=== PATIENT | female | born 1935 | race Caucasian/White ===

== ENCOUNTER 2016-11-24 16:02 | Inpatient (IN) | payer OTHER ==
[2016-11-24] MEDS ORDERED: ZOFRAN IV PRN (17:41)
[2016-11-24] MEDS ORDERED: CALMOSEPTINE OINTMENT TOP SCH (17:41)
[2016-11-24] MEDS ORDERED: NS 500 ML IV ONE (17:41)
[2016-11-24 18:24] LABS: MANUAL DIFF NEEDED? NO
[2016-11-24 18:26] LABS: BASO% 0.3 % (0.0-0.8); EOS# 0.02 X1000 (0.0-0.7); EOS% 0.3 % (0.0-10.0); HEMATOCRIT 44.7 % (37.0-47.0); HEMOGLOBIN 15.5 g/dL (12.0-16.0); LYMPH# 2.02 X1000 (1.2-3.4); LYMPH% 26.4 % (20.5-51.1); MCH 33.7 PG (27-31); MCHC 34.7 g/dL (33-37); MCV 97.2 FL (81-99); MONO# 0.32 X1000 (0.11-0.59); MONO% 4.2 % (1.7-9.3); MPV 9.3 FL (7.4-10.4); NEUT% 68.8 % (42.2-75.2); PLT 320 X1000 (130-400)
[2016-11-24 18:55] LABS: CALCIUM 10.2 mg/dL (8.8-10.2); POTASSIUM 4.2 mmol/L (3.5-5.1); TOTAL BILIRUBIN 0.38 mg/dL (0.20-1.00); TOTAL PROTEIN 6.9 g/dL (6.3-8.3)
[2016-11-24] MEDS: NICODERM PATCH TD SCH (19:07)
[2016-11-24] MEDS: NS 1,000 ML IV SCH (19:41)
[2016-11-24 20:01] LABS: URINE SOURCE CLEAN CATCH
[2016-11-24 20:05] LABS: BILIRUBIN URINE NEGATIVE (NEGATIVE); BLOOD URINE MODERATE (NEGATIVE); COLOR YELLOW; GLUCOSE URINE NEGATIVE (NEGATIVE); LEUKOCYTES URINE LARGE (NEGATIVE); NITRITE URINE POSITIVE (NEGATIVE); PH URINE 6.5; PROTEIN URINE 70 mg/dL (NEGATIVE); SP GRAVITY URINE 1.026; TURBIDITY URINE TURBID (CLEAR); UROBILINOGEN URINE NORMAL (NORMAL)
[2016-11-24 20:06] LABS: URINE MICRO REVIEW NEEDED? YES
[2016-11-24 20:18] LABS: UR EPITHELIAL CELLS <10 /HPF (<10); URINE BACTERIA 4+ /HPF; URINE CULTURE NEEDED? YES; URINE RBC TNTC /HPF (<10); URINE WBC TNTC /HPF (<10)
[2016-11-24 20:23] LABS: URINE CASTS NONE SEEN; URINE CRYSTALS NONE SEEN; URINE SMALL ROUND CELLS NONE SEEN
[2016-11-24] MEDS ORDERED: LOVENOX SUBQ SCH (21:00)
[2016-11-24] MEDS ORDERED: ALBUTEROL NEB INH SCH (21:00)
[2016-11-25] MEDS: NS 1,000 ML IV SCH (04:31)
[2016-11-25] MEDS ORDERED: SYNTHROID PO SCH (07:00)
--- NOTE | 2016-11-25 08:04 | Diag Imaging Result Document ---
PROCEDURE NAME: ABDOMEN FLAT/UPRIGHT - 11/24/2016 FLAT AND UPRIGHT ABDOMEN: FINDINGS: There is severe scoliosis of the thoracolumbar spine with convexity to the right. The bowel gas pattern is nonspecific, and there is no evidence of organomegaly or mass. There has evidently been previous cholecystectomy. IMPRESSION: No evidence of obstruction.
[2016-11-25] MEDS ORDERED: SEPTRA DS PO SCH (09:00)
[2016-11-25] MEDS: NICODERM PATCH TD SCH (09:06)
[2016-11-25 14:28] VITALS: BP 151/90
[2016-11-25] MEDS ORDERED: ARICEPT PO SCH (21:00)
== END 2016-11-25 14:23 | disposition home or self-care (01) | DRG 690 ==
LOC: DIRADM 16:02 → 3N 17:29
PROVIDERS: ADMIT Internal Medicine; ATTEND Internal Medicine
DX: N30.90 Cystitis, unspecified without hematuria (principal); J44.9 Chronic obstructive pulmonary disease, unspecified; G30.1 Alzheimer's disease with late onset; F02.80 Dementia in other diseases classified elsewhere, unspecified severity, without behavioral disturbance, psychotic disturbance, mood disturbance, and anxiety; E86.0 Dehydration; F17.210 Nicotine dependence, cigarettes, uncomplicated; E78.00 Pure hypercholesterolemia, unspecified; E03.9 Hypothyroidism, unspecified; Z79.899 Other long term (current) drug therapy; Z79.82 Long term (current) use of aspirin
CPT/HCPCS: 74020; 80053; 81001; 85025; 87077; 87088; 87186; 94640; 94761; J7030; J7040; 97530-GP

== ENCOUNTER 2019-10-20 01:31 | Inpatient (IN) ==
[2019-10-20] MEDS ORDERED: NORCO-7.5 PO PRN (08:00)
[2019-10-20] MEDS ORDERED: ZOFRAN IV PRN (08:00)
[2019-10-20] MEDS: DUONEB (A & A) INH SCH ×3 (09:30→19:17)
--- NOTE | 2019-10-20 09:53 | HISTORY AND PHYSICAL ---
CHIEF COMPLAINT: Right thigh pain following a fall last Monday. HISTORY OF PRESENT ILLNESS: Ms. Lewis is an 84-year-old white female who has moderately advanced Alzheimer's dementia along with COPD and continued cigarette abuse. She has a 24/7 sitter. Last Monday, 7 days ago, she was witnessed to fall inside her house on her right hip. She was able to get up with assistance and has continued to occasionally bear a tiny bit of weight but has complained about pain in her right thigh. She denies pain in the right hip. Her daughter, Pamela, lives in [place] but last week was vacationing in [place]. She called my office on , and I arranged for outpatient x-rays of her right hip and femur. This did show an impacted right femoral neck fracture. Dr. Lugo, orthopedic surgeon, is aware and plans to see her and hopefully operate tomorrow. I believe she may do best with a hip pinning, although the final decision with be Dr. Lugo's. I also anticipate spinal anesthesia with conscious sedation, but again, this will be left to the anesthesiologist. She is at moderate risk for postoperative delirium due to her baseline dementia. She has been on Aricept for dementia for greater than 5 years. She has fewer and fewer good days and often does not recognize her home as home and asks when she can go home. She still intermittently recognizes her daughter. She is able to feed herself but has been in disposable diapers for quite some time. A typical day for her is sitting around drinking black coffee and smoking cigarettes. PAST MEDICAL HISTORY: COPD and dementia. PAST SURGICAL HISTORY: Remote history of cholecystectomy, carotid endarterectomy and bilateral breast implants. HOME MEDICATIONS: Aricept 23 mg daily, GlycoLax 17 g daily to prevent constipation, Synthroid 50 mcg daily, vitamin D3 2000 units daily, aspirin 81 mg daily, vitamin B12 1000 mcg p.o. daily, DuoNeb t.i.d., venlafaxine ER 150 mg daily, Seroquel 25 mg nightly at bedtime. ALLERGIES: She is allergic to codeine and tetracycline. SOCIAL HISTORY: She is and lives with her caregiver. She is a current everyday smoker, smoking approximately 1 pack a day for 55 years. She has previously had Pneumovax and Prevnar, flu vaccination status this year is unknown. REVIEW OF SYSTEMS: General: No fever, chills, night sweats or weight loss. HEENT: She denies recent changes in vision, hearing loss or dizziness. Cardiovascular: No recent chest pain, orthopnea, history of ischemic heart disease or edema. Respiratory: She has minimal sputum with moderate smoker's cough. No hemoptysis. GI: Appetite has been unchanged, which means fair for her. She denies any recent constipation or heartburn. : No dysuria, nocturia or hematuria. Musculoskeletal: Right thigh pain since falling last week. Normally she is moderately active and gets out and walks around her yard some. Neurologic: No headaches, numbness or vertigo. Psychologic: No depressed feelings or anxiety. She has known dementia with an MMSE of 19/30 in 2016. Hematologic: No history of bleeding problems or anemia. PHYSICAL EXAMINATION: GENERAL APPEARANCE: A pale elderly woman with slight temporal wasting. HEENT: Unremarkable. NECK: Supple with no adenopathy, JVD or bruits. CARDIOVASCULAR: Regular rate and rhythm. Normal S1 and S2. No murmurs or gallops. LUNGS: Clear without crackles or wheezes. There is slightly prolonged expiratory phase. ABDOMEN: Soft, flat, nontender. Normal bowel sounds. MUSCULOSKELETAL: Right hip is minimally tender. Range of motion is fair with some thigh pain reproduced with right hip flexion. LYMPHATICS: No lymphadenopathy. NEUROLOGICAL: Her memory and orientation are poor, but otherwise cranial nerve examination is unremarkable, and she moves all extremities on command. Gait is not tested. ASSESSMENT: 1. Impacted right femoral neck fracture, for open reduction internal fixation or hip pinning tomorrow by Dr. Lugo. 2. Chronic obstructive pulmonary disease secondary to longstanding cigarette use, ongoing. 3. Hypothyroidism, replaced. 4. History of depression, currently without symptoms. TREATMENT PLAN: We will admit and place n.p.o. after midnight. Request Orthopedic consultation. She will be placed on low dose Lovenox subcutaneously for DVT prophylaxis. Her daughter is interested in skilled nursing placement as well as short term rehab, and the social work therapist will discuss this with her. cc: Chato Rodriguez MD [facility]
--- NOTE | 2019-10-20 10:55 | Diag Imaging Result Doc PS360 ---
XRAY HIP UNILATERAL RT - 10/20/2019 INDICATION: recent impacted fracture TECHNIQUE: Two views COMPARISON: 10/17/2019 FINDINGS: There is no change in the subcapital right hip fracture. No dislocation. IMPRESSION: No change from prior. Electronically signed by Abran Winslow 10/20/2019 10:53 AM
[2019-10-20 13:01] LABS: BASO# 0.05 X1000 (0.0-0.2); BASO% 0.8 % (0.0-0.8); EOS# 0.06 X1000 (0.0-0.7); EOS% 0.9 % (0.0-10.0); HEMATOCRIT 46.2 % (37.0-47.0); HEMOGLOBIN 14.6 g/dL (12.0-16.0); LYMPH# 1.66 X1000 (1.2-3.4); MCH 32.3 PG (27-31); MCHC 31.6 g/dL (33-37); MCV 102.2 FL (81-99); MONO# 0.33 X1000 (0.11-0.59); MPV 9.9 FL (7.4-10.4); NEUT# 4.53 X1000 (1.4-6.5); NEUT% 68.3 % (42.2-75.2); PLT 264 X1000 (130-400); RBC 4.52 XMIL (4.2-5.4); WBC 6.63 X1000 (4.8-10.8)
[2019-10-20 13:07] LABS: ALB/GLOB RATIO 1.3; ALBUMIN 3.5 g/dL (3.5-5.0); CALCIUM 9.8 mg/dL (8.8-10.2); POTASSIUM 3.9 mmol/L (3.5-5.1); TOTAL BILIRUBIN 0.35 mg/dL (0.20-1.00); TOTAL PROTEIN 6.3 g/dL (6.3-8.3)
[2019-10-20] MEDS: NICODERM PATCH TD SCH (13:12)
[2019-10-20] MEDS: LOVENOX SUBQ SCH (13:14)
[2019-10-20] MEDS: MIRALAX PO SCH ×2 (13:19→20:43)
[2019-10-20] MEDS: SYNTHROID PO SCH (13:19)
[2019-10-20] MEDS: EFFEXOR XR PO SCH (13:19)
[2019-10-20] MEDS: ARICEPT PO SCH (13:20)
[2019-10-20 13:33] LABS: INR 0.95; PROTIME 12.8 Seconds (11.0-16.0)
[2019-10-20] MEDS ORDERED: SEROQUEL PO SCH (21:00)
[2019-10-21] MEDS: DUONEB (A & A) INH SCH ×5 (05:08→20:49)
[2019-10-21] MEDS: SYNTHROID PO SCH (06:06)
--- NOTE | 2019-10-21 07:23 | EKG Report ---
Test Performed on : 10/21/2019 07:09:14 AM Test Reason : pre-op Blood Pressure : / mmHG Vent. Rate : 083 BPM Atrial Rate : 083 BPM P-R Int : 136 ms QRS Dur : 076 ms QT Int : 372 ms P-R-T Axes : 087 085 060 degrees QTc Int : 437 ms Sinus rhythm. with occasional premature ventricular complexes. Biatrial enlargement Anteroseptal infarct (cited on or before 26-JAN-2016) Abnormal ECG When compared with ECG of 26-JAN-2016 14:00, premature ventricular complexes. are now present Confirmed by Bolivar PERSON, Jose Duncan ([id number]) on 10/21/2019 6:02:06 PM
--- NOTE | 2019-10-21 07:44 | ORTHOPAEDICS CONSULTATION ---
DATE: 10/20/2019 REQUESTING PHYSICIAN: Chato Rodriguez MD REASON FOR CONSULTATION: Right hip fracture. PAST MEDICAL HISTORY: 1. COPD. 2. Alzheimer's. PAST SURGICAL HISTORY: 1. Cholecystectomy. 2. Carotid endarterectomy. 3. Breast augmentation. MEDICATIONS: 1. Aricept. 2. GlycoLax. 3. Synthroid. 4. Vitamin D. 5. Aspirin 81 mg. 6. Vitamin B12. 7. DuoNeb. 8. Venlafaxine. 9. Seroquel. ALLERGIES: Patient reports allergy to codeine as well as tetracycline. SOCIAL HISTORY: The patient is . She lives at home with 24 hour caregiver. She smokes 1 pack of cigarettes per day for the last 55 years. She denies any alcohol or drug use. FAMILY HISTORY: Noncontributory. REVIEW OF SYSTEM: Ten point review of systems complete and negative other than what is listed in history of present illness. CHIEF COMPLAINT: Right hip pain. HISTORY OF PRESENT ILLNESS: Ms Lewis is an 84-year-old lady who sustained a same-level fall at her house last week. Since that time, she has had pain with the hip, but has been ambulating. Dr. Rodriguez ordered x-rays this past , demonstrating a valgus impacted femoral neck fracture. I discussed treatment plan with the patient's daughter, who was at a town at the time and states she is going to be unable to get her to the hospital until she came back in town this weekend. I told the patient's daughter to let the caregivers know she needs to remain nonweightbearing on this side and will plan on surgery today. The patient's daughter, Pamela, states that she has severe Alzheimer's dementia. She is able to feed herself and recognizes her daughter. She has no other complaints. PHYSICAL EXAMINATION: General: Ms. Lewis is a 84-year-old female appears well developed in no acute distress. She is rather cachectic appearing. Vital signs: Temperature 97.6 degrees Fahrenheit, heart rate 83, blood pressure 169/79, O2 saturations 96% on room air. HEENT: Normocephalic and atraumatic. Respiratory: Nonlabored breathing. Cardiovascular: Regular rate and rhythm. Extremities: Examination of right lower extremity shows skin to be intact. Patient has tenderness to palpation over her groin and hip on the right side. Nontender in her knee, leg, ankle and foot. She has pain with log roll of her hip. Extensor mechanism intact in the knee. Motor is intact in quadriceps, hamstrings, EHL, tibialis anterior, gastrocsoleus complex. Sensation intact to light touch L3 to S1. Dorsalis pedis pulse palpable and equal bilaterally. LABS: Hematocrit 46, white count 6.7, platelets 264,000. IMAGING: AP and lateral of the right hip were reviewed demonstrating a valgus impacted femoral neck fracture. She has no interval displacement in her fracture between initial x-rays and x-rays obtained yesterday, indicating likely stable injury. ASSESSMENT: An 84-year-old female with right valgus impacted femoral neck fracture. PLAN: 1. A long discussion was held with patient and daughter regarding diagnosis and treatment options. Given her fracture pattern and the fact she has been walking on it, I think this it is likely a stable fracture that is amendable to closed reduction and percutaneous pinning. Given her severe Alzheimer's dementia, I think this would be the right thing to do, as it is the least invasive and quickest option. The patient's daughter discussed the possibility of doing spinal anesthetic, which we will defer to anesthesia. I think this would be a good plan though. The patient has been n.p.o. since midnight. Plan will be for closed reduction and percutaneous pinning of her right femoral neck fracture to be done this morning. Therapy will start working with her later this afternoon. We will restart DVT prophylaxis tomorrow morning. Risks, benefits, alternative therapies were discussed with the patient's daughter regarding surgery. Risks of surgery include, but not limited to, risk of bleeding, infection, damage to nerves and vessels around the area, continued pain following surgery, malunion, nonunion, need for revision surgery. There is also the risk of anesthesia including postoperative dementia, stroke, heart attack, even . Patient understands all questions were answered. Informed consent was obtained. 2. Keep NPO until postoperatively. 3. Appreciate consultation and hospitalist's recommendations. cc: Chato Rodriguez MD
--- NOTE | 2019-10-21 07:52 | Diag Imaging Result Doc PS360 ---
EXAM: CHEST-PORTABLE INDICATION: pre-op TECHNIQUE: One view COMPARISON: 12/25/2018 FINDINGS: There is evidence of prior granulomatous disease, stable. There is stable mild biapical fibrotic changes. The lungs are hyperinflated suggesting COPD, stable. Otherwise, the lungs are grossly clear. There is no discrete pleural fluid collection or pneumothorax. The cardiomediastinal silhouette and central vasculature are grossly unremarkable. IMPRESSION: Stable COPD changes and biapical mild fibrosis. No definite acute chest pathology by plain radiograph. Electronically signed by Julian Blue 10/21/2019 7:50 AM
[2019-10-21] MEDS ORDERED: DIPRIVAN 1% ONE (08:58)
[2019-10-21] MEDS ORDERED: KEFZOL 1 GM/D5W 1 GM/50 ML IVPB ONE (09:46)
[2019-10-21] MEDS ORDERED: FENTANYL ONE (10:03)
[2019-10-21] MEDS ORDERED: SODIUM CHLORIDE 0.9% 10 ML ONE (10:10)
[2019-10-21] MEDS ORDERED: NEO-SYNEPHRINE ONE (10:10)
[2019-10-21] MEDS ORDERED: SENSORCAINE 0.25%/EPI 1:200,000 ONE (10:32)
[2019-10-21 11:06] LABS: URINE SOURCE CATH
[2019-10-21 11:10] LABS: BILIRUBIN URINE NEGATIVE (NEGATIVE); BLOOD URINE TRACE (NEGATIVE); COLOR YELLOW; GLUCOSE URINE NEGATIVE (NEGATIVE); KETONE URINE NEGATIVE (NEGATIVE); LEUKOCYTES URINE NEGATIVE (NEGATIVE); NITRITE URINE NEGATIVE (NEGATIVE); PROTEIN URINE NEGATIVE (NEGATIVE); SP GRAVITY URINE 1.018; TURBIDITY URINE CLEAR (CLEAR); UR EPITHELIAL CELLS <10 /HPF (<10); URINE BACTERIA NEGATIVE /HPF; URINE RBC <10 /HPF (<10); URINE WBC <10 /HPF (<10); UROBILINOGEN URINE 2 mg/dL (NORMAL)
[2019-10-21] MEDS ORDERED: MILK OF MAGNESIA PO PRN (11:14)
[2019-10-21] MEDS ORDERED: MORPHINE IV PRN (11:20)
--- NOTE | 2019-10-21 11:55 | Diag Imaging Result Doc PS360 ---
EXAM: XRAY HIP UNILATERAL RT 10/21/2019 HISTORY: Post-op TECHNIQUE: AP portable right hip with lateral COMMENT: There has been internal fixation of the femoral neck fracture. IMPRESSION: Status post internal fixation. Electronically signed by Cristofer Rajan 10/21/2019 11:53 AM
[2019-10-21] MEDS: EFFEXOR XR PO SCH (12:23)
[2019-10-21] MEDS: ARICEPT PO SCH (12:23)
[2019-10-21] MEDS: NICODERM PATCH TD SCH (12:23)
[2019-10-21] MEDS: MIRALAX PO SCH ×2 (12:23→20:11)
--- NOTE | 2019-10-21 13:31 | OPERATIVE NOTE ---
PROCEDURE DATE: 10/21/2019 PREOPERATIVE DIAGNOSIS: Right valgus impacted femoral neck fracture. POSTOPERATIVE DIAGNOSIS: Right valgus impacted femoral neck fracture. PROCEDURE PERFORMED: Closed reduction and percutaneous pinning of right valgus impacted femoral neck fracture. SURGEON: Dr. Fermin Lugo. ASSISTANTS: Aminata Aiken, whose help was needed for retraction and placement of implants. ANESTHESIA: Spinal anesthetic was used with propofol sedation during the case. COMPLICATIONS: None. SPECIMENS: None. DRAINS: None. BLOOD LOSS: 20 mL. IMPLANTS: Synthes 7.3 mm partially-threaded cannulated titanium screws with washers that were used x3. INDICATIONS FOR PROCEDURE: Ms. Lewis is an 84-year-old lady who sustained a same-level fall at home 5 days ago. She has been ambulating on the hip since that time. She had x-rays done at her primary care physician's office, demonstrating a valgus impacted femoral neck fracture. Given these findings, a decision was made to proceed to the operating room for closed reduction and percutaneous pinning of her fracture. The patient has severe dementia and is minimally ambulatory so I think proceeding with pinning is appropriate. I discussed with the patient's daughter that there is slight failure rate with pinning versus hemiarthroplasty. However, given her mental status and activity level, as well as the fracture site, I think this will definitely suffice in her case. She has been ambulating on the fracture and has not loss of reduction over the last several days, so it is likely a stable fracture. Risks, benefits, and alternative therapies were discussed with the patient and family regarding surgery. Risks of surgery include but are not limited to risks of bleeding, infection, damage to nerves and vessels around the area, malunion, nonunion, screw cutout, and need for revision surgery. There are also risks of anesthesia including blood clot, stroke, heart attack, and even . Patient understands these risks. All questions were answered. Informed consent was obtained. PROCEDURE IN DETAIL: Ms. Lewis was identified by wristband and greeted in the preoperative holding area on 10/21/2019. Her right lower extremity, which was the operative site, was marked with indelible ink per [facility] Sign Your Site protocol. Following this, the patient was transferred back to the operating room for surgery. Upon entering the OR, spinal anesthetic was placed on her hospital bed. She was then transferred in a supine position onto the [place] table. All bony prominences were well padded. Both feet were placed into the boot holders. At this time, fluoroscopy was brought in, confirming no interval displacement of her valgus impacted femoral neck fracture site. At this time, the right lower extremity was then prepped and draped in a routine sterile fashion. Formal time-out was performed, confirming correct patient, procedure, operative site, operative side, and administration of preop antibiotics. Everyone was in agreement. Patient received Ancef prior to the incision. A 10 blade knife was used to make a standard 3 cm, longitudinal incision over the lateral aspect of the proximal femur. Knife was used to dissect through skin and subcutaneous tissue. A longitudinal slit in the IT band was then made. At this time, a guide pin for the screws was placed to get the lateral femoral cortex. We first placed our inferior-most guide pin in routine fashion. AP and lateral fluoroscopic images were obtained, confirming center- center position of the pin. Once this was done, we proceeded with placement of an anterior- superior pin, followed by a posterior-superior pin in similar fashion. Once all guide pins were placed, fluoroscopy was used to confirm subchondral placement of the pins. We then measured the screws. Inferior screw measured 80 mm. Anterior-superior screw was 80 mm. The posterior-superior screw was 85 mm. We then proceeded with placement of the inferior screw first with a washer. The patient had a decent bite and purchase with the screw. Anterior-superior screw was then placed, which had excellent purchase, followed by the posterior -superior screw, which also had excellent purchase. Once this was done, again fluoroscopy was used to confirm extraarticular placement of the screws. We were satisfied with placement. Guide pins were then removed, and final AP and lateral images were taken and saved. At this time, wounds were copiously irrigated with normal saline. Then 20 mL of 0.25% Marcaine with epinephrine were injected around the surgical site for local analgesia. We then proceeded with closure of the IT band with 0 Vicryl suture. Then 2-0 Vicryl sutures were used for subcutaneous tissue closure, followed by penny for skin closure. Wound was then dressed with Xeroform, 4x4s, and an island dressing. At this time, the drapes were removed. The patient was transferred over to the hospital stretcher and taken to recovery in stable condition. There were no acute complications during the procedure. All sponge and sharp counts were correct at the end of the case. cc: Chato Rodriguez MD [facility]
[2019-10-21] MEDS ORDERED: MORPHINE IV ONE (17:33)
[2019-10-21] MEDS ORDERED: STERILE WATER INJ. INJ ONE (17:34)
[2019-10-21] MEDS ORDERED: GEODON IM ONE (17:34)
[2019-10-21] MEDS: COLACE PO SCH (20:11)
[2019-10-21] MEDS: PERIDEX MT SCH (20:11)
[2019-10-21] MEDS: OXY IR PO PRN (20:12)
[2019-10-21] MEDS ORDERED: SEROQUEL PO SCH (21:00)
--- NOTE | 2019-10-21 21:48 | ORTHOPAEDICS PROGRESS NOTE ---
DATE: 10/21/2019 SUBJECTIVE: The patient is doing okay. She reports some pain in her hip. Her caregiver states she has been tolerating a diet. OBJECTIVE: Afebrile, vital signs stable.Extremities: Examination of right lower extremity shows surgical dressing to be clean, dry, intact. Thigh is soft and compressible. No sign of hematoma. Toes are up and downgoing. ASSESSMENT: 84-year-old female status post closed reduction with percutaneous pinning right valgus impacted femoral neck fracture. PLAN: 1. Patient will be weightbearing as tolerated right lower extremity. Physical therapy to mobilize. 2. Appreciate hospitalist recommendations. 3. Lovenox DVT prophylaxis start tomorrow. 4. Ice to right lower extremity as needed for pain. 5. Disposition per primary team. Patient's daughter wants to get her placed into a long-term care facility secondary to her significant Alzheimer's. Will work on placement. cc: Chato Rodriguez MD [facility]
[2019-10-22] MEDS: KEFZOL 1 GM/D5W 1 GM/50 ML IVPB IV SCH ×2 (00:27→11:51)
[2019-10-22 07:16] LABS: HEMATOCRIT 45.3 % (37.0-47.0); HEMOGLOBIN 14.6 g/dL (12.0-16.0)
[2019-10-22 07:34] LABS: AGAP 11; BUN 15 mg/dL (8-22); CALCIUM 9.6 mg/dL (8.8-10.2); CHLORIDE 101 mmol/L (98-107); COSMO 286; CREATININE 0.8 mg/dL (0.5-0.9); ESTIMATED GFR > 60; GLUCOSE 140 mg/dL (70-104); POTASSIUM 4.2 mmol/L (3.5-5.1); SODIUM 142 mmol/L (136-145); TCO2 30 mmol/L (25-35)
[2019-10-22] MEDS ORDERED: LOVENOX SUBQ SCH (07:45)
--- NOTE | 2019-10-22 07:55 | ORTHOPAEDICS PROGRESS NOTE ---
DATE: 10/22/2019 SUBJECTIVE: No acute events overnight. Patient's granddaughter states that she did well overall. She did try to get up a couple of times. She tolerated a diet yesterday. OBJECTIVE: Vital Signs: Afebrile. Vital signs stable. Extremities: Examination of the right lower extremity shows surgical dressing has been removed and new 4 x [address] The wound shows penny intact with no sign of infection. No erythema. No swelling in the thigh or calf. Toes are up- and downgoing. Grossly neurovascularly intact. LABORATORY DATA: Hematocrit is pending. ASSESSMENT: An 84-year-old female status post CRPP of right valgus impacted femoral neck fracture. Postoperative day 1. PLAN: 1. Patient will be weightbearing as tolerated, right lower extremity. Physical Therapy to mobilize with assistive device. 2. Ice to right lower extremity as needed for pain. 3. Lovenox for DVT prophylaxis. 4. Appreciate Hospitalist recommendations. 5. Disposition per primary team. Plan is discharged to inpatient rehab versus a long-term care facility. She can follow up with me in clinic in 2 weeks for wound check and x-rays. cc: Chato Rodriguez MD
[2019-10-22 07:58] LABS: TSH 0.79 uIUmL (0.27-4.20)
[2019-10-22] MEDS: DUONEB (A & A) INH SCH ×3 (08:29→20:00)
[2019-10-22] MEDS ORDERED: FERROUS SULFATE PO SCH (09:00)
[2019-10-22] MEDS ORDERED: BLISTEX MEDICATED BERRY LIP BALM TOP PRN (11:47)
[2019-10-22] MEDS: ARICEPT PO SCH (11:51)
[2019-10-22] MEDS: OXY IR PO PRN ×2 (11:51→20:24)
[2019-10-22] MEDS: SYNTHROID PO SCH (11:51)
[2019-10-22] MEDS: EFFEXOR XR PO SCH (11:51)
[2019-10-22] MEDS: NICODERM PATCH TD SCH (11:52)
[2019-10-22] MEDS: PERIDEX MT SCH ×2 (11:52→20:23)
[2019-10-22] MEDS: MIRALAX PO SCH ×2 (11:52→20:23)
[2019-10-22] MEDS: LOVENOX SUBQ SCH (12:41)
[2019-10-22] MEDS ORDERED: CALMOSEPTINE OINTMENT TOP PRN (17:28)
[2019-10-22] MEDS: COLACE PO SCH (20:24)
[2019-10-22] MEDS: SEROQUEL PO SCH (20:24)
[2019-10-23] MEDS: SYNTHROID PO SCH (07:05)
[2019-10-23] MEDS: OXY IR PO PRN ×2 (07:05→22:45)
[2019-10-23] MEDS: DUONEB (A & A) INH SCH ×4 (07:38→20:21)
[2019-10-23] MEDS: MIRALAX PO SCH (09:16)
[2019-10-23] MEDS: NICODERM PATCH TD SCH (09:16)
[2019-10-23] MEDS: ARICEPT PO SCH (09:16)
[2019-10-23] MEDS: EFFEXOR XR PO SCH (09:16)
[2019-10-23] MEDS: LOVENOX SUBQ SCH (09:16)
[2019-10-23] MEDS: BIDEX PO SCH ×3 (09:35→22:46)
[2019-10-23] MEDS: SEROQUEL PO SCH (22:46)
[2019-10-23] MEDS: COLACE PO SCH (22:46)
[2019-10-24] MEDS: MIRALAX PO SCH ×2 (01:12→09:07)
[2019-10-24 05:08] VITALS: BP 122/54
[2019-10-24] MEDS ORDERED: TYLENOL PO PRN (06:47)
[2019-10-24] MEDS: LOVENOX SUBQ SCH (09:34)
[2019-10-24] MEDS: EFFEXOR XR PO SCH (09:34)
[2019-10-24] MEDS: NICODERM PATCH TD SCH (09:34)
[2019-10-24] MEDS: ARICEPT PO SCH (09:34)
[2019-10-24] MEDS: BIDEX PO SCH (09:34)
--- NOTE | 2019-10-24 10:51 | DISCHARGE SUMMARY ---
ADMISSION DATE: 10/20/2019 DISCHARGE DATE: 10/24/2019 FINAL DIAGNOSES: 1. Impacted right femoral neck fracture, status post closed reduction and pinning. 2. Alzheimer's dementia, moderately severe. 3. Chronic obstructive pulmonary disease, chronic. 4. Malnutrition, protein calorie type. HISTORY OF PRESENT ILLNESS: Ms. Lewis is an 84-year-old white female with a history of moderately advanced Alzheimer's dementia and COPD. She fell at home approximately a week prior to admission and has complained of significant hip pain and thigh pain since. Please see the dictated history for further details. PHYSICAL EXAMINATION: Vital Signs: Unremarkable. General: She was a thin, pale, elderly woman with slight temporal wasting. Cardiovascular: Regular rate and rhythm. No murmurs. Lungs: Clear without crackles or wheezes with slightly prolonged expiratory phase. Abdomen: Soft, flat, and nontender. Neurologic: Her memory and orientation were poor but cranial nerve examination was unremarkable and she moves all extremities on command. HOSPITAL COURSE: The next morning she was taken to the OR and Dr. Lugo placed multiple pins across the fracture. She had a restless night following that and required some sedation and the following day the physical therapist deferred treatment because of her decreased responsiveness but they saw her yesterday and she was fairly cooperative and able to stand although with reduced weightbearing on the right leg. Her daughter is ready to move her to long-term care, and we discussed going to rehab for 21 days and then moving to the long-term care side as her dementia has progressed and to the point to where she requires 24/7 sitters. Her chemistry profile was unremarkable. She had a low prealbumin level of 10.3, indicating reduced oral intake. Her vitamin B12 and folate were normal. Her TSH was likewise normal on supplementation. She is discharged to [facility] in stable condition. DISCHARGE MEDICATIONS: Quetiapine 50 mg at bedtime, guaifenesin tablets 400 mg three times daily, Calmoseptine ointment topically to the groin as needed for incontinence, Lovenox 30 mg subcutaneous daily for seven days, milk of magnesia 30 mL daily as needed for constipation, OxyIR 5 mg every 4 hours as needed for pain, acetaminophen 650 mg q.4 h. p.r.n., venlafaxine ER 150 mg every morning, donepezil 10 mg daily, aspirin 81 mg daily, vitamin D3 2000 units daily, DuoNeb one medicated aerosol treatment three times a day, MiraLAX 17 g twice daily, levothyroxine 50 mcg daily, vitamin B12 1000 mcg p.o. daily, nicotine patch 21 mg, one transdermally daily. cc: Chato Rodriguez MD
[2019-10-24] MEDS: SYNTHROID PO SCH (11:53)
[2019-10-24] MEDS: DUONEB (A & A) INH SCH (12:04)
== END 2019-10-24 13:49 | DRG 481 ==
LOC: DIRADM 01:31 → 4N 08:06
PROVIDERS: ADMIT Internal Medicine; ATTEND Internal Medicine